=== PATIENT | female | born 1945 | race Caucasian/White ===

== ENCOUNTER 2016-10-16 09:03 | Inpatient (IN) | payer MEDICARE ==
[2016-10-16] VITALS (11 sets, daily range): BP systolic 137–192; BP diastolic 70–86; PULSE 69–90; RESP 14–22; TEMP 97.8–98.4; O2SAT 95–99
[~2016-10-16] VITALS: Ht 157.5 cm; Wt 79.9 kg
[2016-10-16 09:27] LABS: MEAN CORPUSCULAR HGB CONC 29.7 % (32.0-36.0)
--- NOTE | 2016-10-16 09:30 | PD ---
HPI Chief Complaint: Abnormal Results Time Seen by Provider: 09:20 Travel History International Travel<30 days: No Contact w/Intl Traveler<30days: No Traveled to known affect area: No History of Present Illness HPI 71-year-old female complains of generalized malaise and weakness and shortness of breath and tachycardia. Patient states that the symptoms started 5 days ago. Patient denies any headache. Patient denies any chest pain. Patient denies abdominal pain. Patient denies any blood in the stool. Patient was seen by personal physician of the days ago and had CBC done which shows hemoglobin around 5.5. Patient was advised by personal physician to ED for evaluation. Patient states that she had colonoscopy done about a year ago and was normal. Her mining helper physician Dr. Ruffin. Patient has history hypertension and hypothyroidism. Patient was given prescription for prednisone and omeprazole recently for persistent cough. Patient denies history GI bleed in the past. PFSH Past Medical History ?: Not Social History Tobacco Use: No Allergies-Medications (Allergen,Severity, Reaction): Coded Allergies: Kenalog (Verified Allergy, Severe, 10/16/16) Marcaine (Verified Allergy, Severe, 10/16/16) Sulfa (Verified Allergy, Severe, swollen hands, 10/16/16) Tetracycline (Verified Allergy, Severe, severe vaginal infection, 10/16/16) Reported Meds & Prescriptions Reported Meds & Active Scripts Active Reported Vitamin D-3 (Cholecalciferol) 2,000 Unit Tab 2,500 Units PO DAILY Perdiem Overnight Relief (Sennosides) 15 Mg Tab 30 Mg PO HS Biotin 7,500 Mcg Tab 7,500 Mcg PO DAILY [place] Oil (Nutritional Supplements) 1 Cap Cap 1,000 Mg PO DAILY Amlodipine (Amlodipine Besylate) 2.5 Mg Tab 2.5 Mg PO DAILY Synthroid (Levothyroxine Sodium) 88 Mcg Tab 88 Mcg PO DAILY Review of Systems General / Constitutional: No: Fever Eyes: No: Visual changes HENT: No: Headaches Cardiovascular: Positive: Tachycardia, No: Chest Pain or Discomfort Respiratory: Positive: Shortness of Breath Gastrointestinal: No: Abdominal Pain Genitourinary: No: Dysuria Musculoskeletal: No: Pain Skin: No Rash Neurologic: No: Weakness Psychiatric: No: Depression Endocrine: No: Polydipsia Hematologic/Lymphatic: No: Easy Bruising Physical Exam Narrative GENERAL: Well-nourished, well-developed patient. SKIN: Warm and dry. HEAD: Normocephalic. EYES: No scleral icterus. No injection or drainage. NECK: Supple, trachea midline. No JVD or lymphadenopathy. CARDIOVASCULAR: Regular rate and rhythm without murmurs, gallops, or rubs. RESPIRATORY: Breath sounds equal bilaterally. No accessory muscle use. GASTROINTESTINAL: Abdomen soft, non-tender, nondistended. Rectal exam Hemoccult trace positive. MUSCULOSKELETAL: No cyanosis, or edema. BACK: Nontender without obvious deformity. No CVA tenderness. Neurologic exam normal. Data Data Last Documented VS Vital Signs Date Time Temp Pulse Resp B/P Pulse Ox O2 Delivery O2 Flow Rate FiO2 10/16/16 10:30 97.8 83 16 184/84 98 Room Air Orders Electrocardiogram (10/16/16 09:25) Complete Blood Count With Diff (10/16/16 09:25) Comprehensive Metabolic Panel (10/16/16 09:25) Prothrombin Time / Inr (Pt) (10/16/16 09:25) Act Partial Throm Time (Ptt) (10/16/16 09:25) Thyroid Stimulating Hormone (10/16/16 09:25) Chest, Single Ap (10/16/16 09:25) Iv Access Insert/Monitor (10/16/16 09:25) Ecg Monitoring (10/16/16 09:25) Oximetry (10/16/16 09:25) Type And Screen (10/16/16 09:25) Red Blood Cells (Rbc) (10/16/16 10:02) Blood Product Administration .UPON TRANSFUSION (10/16/16 10:02) Sodium Chlor 0.9% 250 Ml Inj (Ns 250 Ml (10/16/16 10:15) Admit Order (Ed Use Only) (10/16/16 10:54) Ferritin (10/16/16 10:55) Folate, Serum (10/16/16 10:55) Iron/Tibc Profile (10/16/16 10:55) Vitamin B12 (10/16/16 10:55) Place In Observation (10/16/16 ) Diet Clear Liquid (10/16/16 Lunch) Activity Bed Rest (10/16/16 10:57) Vital Signs (Adult) TOINA.Q4H (10/16/16 10:57) Labs Laboratory Tests Test 10/16/16 09:35 White Blood Count 8.9 TH/MM3 Red Blood Count 3.13 MIL/MM3 Hemoglobin 5.8 GM/DL Hematocrit 19.7 % Mean Corpuscular Volume 63.0 FL Mean Corpuscular Hemoglobin 18.7 PG Mean Corpuscular Hemoglobin 29.7 % Concent Red Cell Distribution Width 18.6 % Platelet Count 670 TH/MM3 Mean Platelet Volume 8.3 FL Neutrophils (%) (Auto) % Lymphocytes (%) (Auto) % Monocytes (%) (Auto) % Eosinophils (%) (Auto) % Basophils (%) (Auto) % Neutrophils # (Auto) TH/MM3 Lymphocytes # (Auto) TH/MM3 Monocytes # (Auto) TH/MM3 Eosinophils # (Auto) TH/MM3 Basophils # (Auto) TH/MM3 CBC Comment AUTO DIFF Differential Total Cells 100 Counted Neutrophils % (Manual) 67 % Lymphocytes % 25 % Monocytes % 6 % Eosinophils % 2 % Neutrophils # (Manual) 6.0 TH/MM3 Nucleated Red Blood Cells 1 /100 WBC Differential Comment FINAL DIFF MANUAL Platelet Estimate HIGH Platelet Morphology Comment NORMAL Ovalocytes 1+ Acanthocytes 1+ Keratocytes 1+ Prothrombin Time 11.2 SEC Prothromb Time International 1.0 RATIO Ratio Activated Partial 20.3 SEC Thromboplast Time Sodium Level 139 MEQ/L Potassium Level 3.5 MEQ/L Chloride Level 107 MEQ/L Carbon Dioxide Level 23.8 MEQ/L Anion Gap 8 MEQ/L Blood Urea Nitrogen 16 MG/DL Creatinine 0.84 MG/DL Estimat Glomerular Filtration 67 ML/MIN Rate Random Glucose 90 MG/DL Calcium Level 8.3 MG/DL Iron Level 8 MCG/DL Total Iron Binding Capacity 540 MCG/DL Percent Iron Saturation 1.5 % Ferritin 2 NG/ML Total Bilirubin 0.2 MG/DL Aspartate Amino Transf 6 U/L (AST/SGOT) Alanine Aminotransferase 19 U/L (ALT/SGPT) Alkaline Phosphatase 74 U/L Total Protein 6.9 GM/DL Albumin 3.4 GM/DL Vitamin B12 Level 405 PG/ML Folate 7.6 NG/ML Thyroid Stimulating Hormone 0.517 uIU/ML 3rd Gen Blood Type A POSITIVE Antibody Screen NEGATIVE Blood Bank Comment Crossmatch Leukocyte-Reduced Red Blood Cells MDM Medical Decision Making Medical Screen Exam Complete: Yes Emergency Medical Condition: Yes Interpretation(s) 10:43 AM. Chest x-ray shows large hiatal hernia. No acute infiltrate. CBC with hemoglobin 5.8 hematocrit 19.7. MCV 63. CMP within normal limit. Differential Diagnosis Differential diagnosis including anemia, electrolyte imbalance, dehydration, endocrine problem, pneumonia, UTI, sepsis. Narrative Course 71-year-old female with generalized malaise and shortness of breath and tachycardia. HemaPrompt Point of Care Internal Pos. & Neg. Controls: Passed Fecal Specimen Occult Blood: Positive Diagnosis Primary Impression: Severe anemia Additional Impression: GI bleed Qualified Code: K92.2 - Gastrointestinal hemorrhage, unspecified gastrointestinal hemorrhage type Admitting Information Admitting Physician Requests: Admit Armando De La Cruz MD Oct 16, 2016 09:30
[2016-10-16] MEDS ORDERED: SYNT88TA PO (09:46)
[2016-10-16] MEDS ORDERED: CHOL1TAB42 PO (09:46)
[2016-10-16] MEDS ORDERED: iodoral PO (09:46)
[2016-10-16] MEDS ORDERED: BIOT7500 PO (09:46)
[2016-10-16] MEDS ORDERED: [UNRECOGNIZED DRUG - CODE] PO (09:46)
[2016-10-16] MEDS ORDERED: PRED10 PO (09:46)
[2016-10-16] MEDS ORDERED: AMLO2.5T PO (09:46)
[2016-10-16] MEDS ORDERED: OMEP40CA2 PO (09:46)
[2016-10-16] MEDS ORDERED: SALM10002 PO (09:46)
[2016-10-16 09:53] LABS: MEAN CORPUSCULAR HEMOGLOBIN 18.7 PG (27.0-34.0); PLATELET COUNT 670 TH/MM3 (150-450); RED BLOOD COUNT 3.13 MIL/MM3 (4.00-5.30); RED CELL DISTRIBUTION WIDTH 18.6 % (11.6-17.2); WHITE BLOOD COUNT 8.9 TH/MM3 (4.0-11.0)
[2016-10-16 09:58] LABS: HEMO FLAGS AUTO DIFF
[2016-10-16 10:02] LABS: HEMATOCRIT 19.7 % (35.0-46.0)
[2016-10-16 10:09] LABS: APTT (PATIENT) 20.3 SEC (24.3-30.1); PROTHROMBIN TIME - PATIENT 11.2 SEC (9.8-11.6)
--- NOTE | 2016-10-16 10:09 | RADRPT ---
EXAM DATE/TIME: 10/16/2016 09:23 [facility] COMPARISON: No previous studies available for comparison. INDICATIONS : Short of breath. MEDICAL HISTORY : None. SURGICAL HISTORY : None. ENCOUNTER: Initial ACUITY: 4 - 6 months PAIN SCORE: 3/10 LOCATION: Left chest FINDINGS: A single view of the chest demonstrates the lungs to be symmetrically aerated without evidence of mas s, infiltrate or effusion. Heart size is normal but there is a prominent retrocardiac density concer caron for a large hiatal hernia. Osseous structures are intact. CONCLUSION: 1. Plain film findings characteristic of a large hiatal hernia. 2. Otherwise, lungs are clear with no acute infiltrate or effusion. Fausto Herbert MD on October 16, 2016 at 10:03 Board Certified Radiologist. This report was verified electronically.
[2016-10-16 10:14] LABS: ALT (GPT) 19 U/L (10-53); ANION GAP 8 MEQ/L (5-15); AST (GOT) 6 U/L (15-37); BICARBONATE 23.8 MEQ/L (21.0-32.0); BLOOD UREA NITROGEN 16 MG/DL (7-18); CHLORIDE 107 MEQ/L (98-107); GLOMERULAR FILTRATION RATE 67 ML/MIN (>89); POTASSIUM 3.5 MEQ/L (3.5-5.1); SODIUM (NA) 139 MEQ/L (136-145)
[2016-10-16] MEDS ORDERED: SODIUM CHLOR 0.9% 250 ML INJ 250 ML IV ONE (10:15)
[2016-10-16 10:23] LABS: ALKALINE PHOSPHATASE 74 U/L (45-117); TOTAL BILIRUBIN ADULT 0.2 MG/DL (0.2-1.0)
[2016-10-16 10:40] LABS: ACANTHOCYTES 1+ (NORMAL); CORRECTED NUCLEATED RBC 1 /100 WBC (0-0); EOSINOPHILS 2 % (0-4); KERATOCYTES 1+ (NORMAL); OVALOCYTES 1+ (NORMAL); PLATELET ESTIMATE SMEAR HIGH (NORMAL); PLATELET MORPHOLOGY NORMAL (NORMAL); POLYS (SEG NEUTROPHILS) 67 % (16-70); SCAN/DIFF FINAL DIFF MANUAL; WBC DIFF SAMPLE 100
[2016-10-16 11:43] LABS: FERRITIN 2 NG/ML (8-252); TRANSFERRIN IRON PROFILE 386 MG/DL (200-360)
--- NOTE | 2016-10-16 14:27 | HHI.HP ---
[facility] Unknown Admission Diagnosis severe anemia. GI bleed. Diagnoses: Chief Complaint: Generalized weakness shortness of breath Travel History International Travel<30 Days: No Contact w/Intl Traveler <30 Da: No Traveled to Known Affected Are: No Sepsis Criteria SIRS Criteria (2 or more): Heart rate over 90, RR > 20 or PaCO2 < 32, WBC > 05963, < 4000 or > 10% bands History of Present Illness Patient is a very pleasant 71-year-old female with history of hypertension, hypothyroidism who was sent in the here from her primary care physician because of low hemoglobin. Patient apparently for the past 2 weeks now has been complaining of generalized weakness, easy fatigability associated with nausea and occasional few episodes of vomiting mostly dry heaves denies any melena or hematochezia. Patient also experiencing palpitations. Went to her primary care physician who did CBC. At the ER her hemoglobin here was 5.6. Patient also with history of obstructive sleep apnea on C Pap. She was last seen by the geriatric aide because of cough and was placed on prednisone taper and omeprazole early this month was actually placed on prednisone taper since the she's down to 10 mg daily now. Otherwise patient denies any bleeding tendencies. ER MD performed a rectal exam which shows brown stools with positive occult blood. admitted for further evaluation and management. Patient admits to having more stress lately. She denies any other bleeding tendencies. Review of Systems Constitutional: DENIES: Diaphoretic episodes, Fatigue, Fever, Weight gain, Weight loss, Chills, Dizziness, Change in appetite, Night Sweats Endocrine: DENIES: Abnorml menstrual pattern, Heat/cold intolerance, Polydipsia , Polyuria, Polyphagia Eyes: DENIES: Blurred vision, Diplopia, Eye inflammation, Eye pain, Vision loss , Photosensitivity, Double Vision Ears, nose, mouth, throat: DENIES: Tinnitus, Hearing loss, Vertigo, Nasal discharge, Oral lesions, Throat pain, Hoarseness, Ear Pain, Running Nose, Epistaxis, Sinus Pain, Toothache, Odynophagia Respiratory: COMPLAINS OF: Apneas Cardiovascular: COMPLAINS OF: Dyspnea on Exertion, DENIES: Chest pain, Palpitations, Syncope, PND, Lower Extremity Edema, Orthopnea, Claudication Gastrointestinal: COMPLAINS OF: Abdominal pain Genitourinary: DENIES: Abnormal vaginal bleeding, Dysmenorrhea, Dyspareunia, Sexual dysfunction, Urinary frequency, Urinary incontinence, Urgency, Hematuria , Dysuria, Nocturia, Vaginal discharge Musculoskeletal: DENIES: Joint pain, Muscle aches, Stiffness, Joint Swelling, Back pain, Neck pain Integumentary: DENIES: Abnormal pigmentation, Pruritus, Rash, Nail changes, Breast masses, Breast skin changes, Nipple discharge Hematologic/lymphatic: DENIES: Bruising, Lymphadenopathy Immunologic/allergic: DENIES: Eczema, Urticaria Neurologic: DENIES: Abnormal gait, Headache, Localized weakness, Paresthesias, Seizures, Speech Problems, Tremor, Poor Balance Psychiatric: DENIES: Anxiety, Confusion, Mood changes, Depression, Hallucinations, Agitation, Suicidal Ideation, Homicidal Ideation, Delusions Past Family Social History Past Medical History Hypothyroidism Hypertension Obstructive sleep apnea on C Pap Past Surgical History Hysterectomy in 1976 Meniscal left knee surgery 4 years ago Bladder bladder prolapse surgery Lasix surgery right eye Reported Medications Synthroid 88 g daily Amlodipine 2.5 mg daily Fish oil Biopsy Vitamin D3 Omeprazole 40 mg daily Patient was placed on tapering doses of prednisone now down to 30 mg daily Allergies: Coded Allergies: Kenalog (Verified Allergy, Severe, 10/16/16) Marcaine (Verified Allergy, Severe, 10/16/16) Sulfa (Verified Allergy, Severe, swollen hands, 10/16/16) Tetracycline (Verified Allergy, Severe, severe vaginal infection, 10/16/16) Physical Exam Vital Signs Vital Signs Date Time Temp Pulse Resp B/P Pulse Ox O2 Delivery O2 Flow Rate FiO2 10/16/16 14:00 81 14 178/80 95 Ventilator 10/16/16 11:05 Room Air 10/16/16 10:30 97.8 83 16 184/84 98 Room Air 10/16/16 09:08 18 10/16/16 09:05 97.8 90 20 192/82 98 Room Air Physical Exam GENERAL: This is a well-nourished, well-developed patient, in no apparent distress. SKIN: No rashes, ecchymoses or lesions. Cool and dry. HEAD: Atraumatic. Normocephalic. No temporal or scalp tenderness. EYES: Pale palpebral conjunctivae Pupils equal round and reactive. Extraocular motions intact. No scleral icterus. No injection or drainage. ENT: Nose without bleeding, purulent drainage or septal hematoma. Throat without erythema, tonsillar hypertrophy or exudate. Uvula midline. Airway patent. NECK: Trachea midline. No JVD or lymphadenopathy. Supple, nontender, no meningeal signs. CARDIOVASCULAR: Regular rate and rhythm without murmurs, gallops, or rubs. RESPIRATORY: Clear to auscultation. Breath sounds equal bilaterally. No wheezes , rales, or rhonchi. GASTROINTESTINAL: Abdomen soft, non-tender, nondistended. No hepato-splenomegaly , or palpable masses. No guarding. MUSCULOSKELETAL: Extremities without clubbing, cyanosis, or edema. No joint tenderness, effusion, or edema noted. No calf tenderness. Negative Homans sign bilaterally. NEUROLOGICAL: Awake and alert. Cranial nerves II through XII intact. Motor and sensory grossly within normal limits. Five out of 5 muscle strength in all muscle groups. Normal speech. Laboratory Laboratory Tests Test 10/16/16 10/16/16 09:35 11:48 White Blood Count 8.9 Red Blood Count 3.13 Hemoglobin 5.8 Hematocrit 19.7 Mean Corpuscular Volume 63.0 Mean Corpuscular Hemoglobin 18.7 Mean Corpuscular Hemoglobin 29.7 Concent Red Cell Distribution Width 18.6 Platelet Count 670 Mean Platelet Volume 8.3 Neutrophils (%) (Auto) Lymphocytes (%) (Auto) Monocytes (%) (Auto) Eosinophils (%) (Auto) Basophils (%) (Auto) Neutrophils # (Auto) Lymphocytes # (Auto) Monocytes # (Auto) Eosinophils # (Auto) Basophils # (Auto) CBC Comment AUTO DIFF Differential Total Cells 100 Counted Neutrophils % (Manual) 67 Lymphocytes % 25 Monocytes % 6 Eosinophils % 2 Neutrophils # (Manual) 6.0 Nucleated Red Blood Cells 1 Differential Comment FINAL DIFF MANUAL Platelet Estimate HIGH Platelet Morphology Comment NORMAL Ovalocytes 1+ Acanthocytes 1+ Keratocytes 1+ Prothrombin Time 11.2 Prothromb Time International 1.0 Ratio Activated Partial 20.3 Thromboplast Time Sodium Level 139 Potassium Level 3.5 Chloride Level 107 Carbon Dioxide Level 23.8 Anion Gap 8 Blood Urea Nitrogen 16 Creatinine 0.84 Estimat Glomerular Filtration 67 Rate Random Glucose 90 Calcium Level 8.3 Iron Level 8 Total Iron Binding Capacity 540 Percent Iron Saturation 1.5 Ferritin 2 Total Bilirubin 0.2 Aspartate Amino Transf 6 (AST/SGOT) Alanine Aminotransferase 19 (ALT/SGPT) Alkaline Phosphatase 74 Total Protein 6.9 Albumin 3.4 Vitamin B12 Level 405 Folate 7.6 Thyroid Stimulating Hormone 0.517 3rd Gen Blood Type A POSITIVE A POSITIVE Antibody Screen NEGATIVE Crossmatch Leukocyte-Reduced Red Blood Cells Blood Bank Comment Result Diagram: 10/16/1635 10/16/16934 Imaging Last Impressions Chest X-Ray 10/16/16924 Signed Impressions: Service Date/Time: Sunday, October 16, 2016 09:23 - CONCLUSION: 1. Plain film findings characteristic of a large hiatal hernia. 2. Otherwise, lungs are clear with no acute infiltrate or effusion. Fausto Herbert MD Assessment and Plan Assessment and Plan 71-year-old female presenting with Acute symptomatic severe anemia and possible GI bleed Severe iron deficiency For transfusion 2 units RBC recheck H&H in a.m. GI service consulted We'll get CT of the abdomen and pelvis Start patient on Protonix 40 mg IV Give IV Iron x 1 Hypothyroidism continue Synthroid 88 g daily History of hypertension amlodipine 2.5 mg daily Discussed with patient No chemical prophylaxis due to above Discussed Condition With Patient Vazquez Lux MD Oct 16, 2016 14:27
[2016-10-16] MEDS ORDERED: PILL SPLITTER OTHER PRN (14:45)
--- NOTE | 2016-10-16 15:45 | RADRPT ---
EXAM DATE/TIME: 10/16/2016 14:59 [facility] COMPARISON: No previous studies available for comparison. INDICATIONS : Weak nausea, low hemoglobin for five days. ORAL CONTRAST: No oral contrast ingested. RADIATION DOSE: 9.96 CTDIvol (mGy) MEDICAL HISTORY : Hypertension. Hypothyroidism. SURGICAL HISTORY : Hysterectomy. Bladder suspension ENCOUNTER: Initial ACUITY: 4 - 6 days PAIN SCALE: 0/10 LOCATION: Abdomen TECHNIQUE: Volumetric scanning of the abdomen and pelvis was performed. Using automated exposure control and adjustment of the mA and/or kV according to patient size, radiation dose was kept as low as reasonably achievable to obtain optimal diagnostic quality images. FINDINGS: Lung bases are clear. There is a large hiatal hernia evident. The liver is free of fo tatiana defects. Gallstones are present in a benign-appearing gallbladder. The pancreas and spleen are unremarkable. Right and left adrenal glands appear normal. Parapelvic cysts are seen in both kidneys. There is not an abdominal mass evident. Pelvic contents are unremarkable only for diverticula in the sigmoid colon. Bladder is unremarkable. Review of bone windows reveals scattered lucencies in the spine in a nonspecific fashion. A couple of these are probably hemangiomas. I do not see obvious bony metastatic disease to the pelvis. Scattered well-defined bone islands are e vident. CONCLUSION: 1. Negative CT scan of the abdomen and pelvis for an acute process. 2. Large hiatal hernia. 3. Gallstones. Gomez Dexter MD FACR on October 16, 2016 at 15:33 Board Certified Radiologist. This report was verified electronically.
[2016-10-16] MEDS ORDERED: IRON SUCROSE INJ 200 MG in SODIUM CHLORIDE 0.9% INJ 100 ML IV ONE (16:00)
--- NOTE | 2016-10-16 17:45 | MB ---
cc: OMKAR KAMARA MD DATE OF CONSULTATION 10/16/16 DATE OF 1945 REASON FOR CONSULTATION Anemia HISTORY OF PRESENT ILLNESS Ms. Ireland is a pleasant 71-year-old lady with past medical history significant for hypertension, hypothyroidism, obstructive sleep apnea and colonic polyps who presented to the hospital after she was found to be severely anemic by her primary care physician. The patient reports that for the past few months she has had significant weakness, fatigue and shortness of breath with minimal exertion. She also had experienced some palpitation as well. She was seen by her primary care physician who did a CBC and she was found to have a hemoglobin of 5.6. She denies any gross episode of GI bleeding. She usually has a bowel movement daily, varies in consistency but no blood noted. She did test positive for occult blood in her stool while in the emergency department. She is well-known to our GI service. She had a recent colonoscopy in May 2016 which was only significant for small rectal polyps which were hyperplastic on pathology. She has never had an upper endoscopy. She does report use of NSAIDs at times for back pain as well as aspirin. She also reports using steroids recently given by her tax advisor for an episode of cough. She does have a family history of colonic polyps in her father. She reports drinking wine occasionally but not a heavy drinker. GI being consulted for evaluation of anemia and possible GI bleeding. PAST MEDICAL HISTORY 1. Hypothyroidism. 2. Hypertension 3. Obstructive sleep apnea uses a CPAP. 4. History of colonic polyps. PAST SURGICAL HISTORY 1. Hysterectomy 1977 2. left knee surgery. 3. Polyp surgery 4. Eye surgery to the right eye. MEDICATIONS 1. Synthroid 88 mcg daily 2. Amlodipine 2.5 mg daily 3. Fish oil 4. Vitamin D3, 5. Omeprazole 40 grams daily 6. Taper dose of prednisone. ALLERGIES KENALOG MARCAINE SULFA TETRACYCLINE SOCIAL HISTORY Reports drinking wine occasionally, no ___ or drug use. FAMILY HISTORY History of colonic polyps in his father. REVIEW OF SYSTEMS Significant for fatigue, weakness, short of breath, palpitations, nausea and vomiting. Otherwise 14 point medical review of systems negative. PHYSICAL EXAMINATION VITAL SIGNS: Temperature 98.4, pulse of 78, respiratory 216, blood pressure 161/79, satting 96% on room air. GENERAL: She is a well-developed lady in no acute distress lying comfortably in bed. HEENT: Normocephalic, atraumatic. Extraocular movements are intact. Pupils equal, round, reactive to light and accommodation. Nonicteric sclera. Moist mucosa. NECK: Supple, no jugular venous distention. No lymphadenopathy. CARDIOVASCULAR: Regular rate and rate, S1, S2, no murmurs or gallops. PULMONARY: Clear to auscultation bilaterally. No wheezing or rhonchi. ABDOMEN: Soft, nontender, nondistended. Bowel sounds are present in all four quadrants. EXTREMITIES: No cyanosis or edema. Pulses 2+ bilaterally. NEUROLOGIC: She is alert, oriented x3, cranial nerves intact, no focal deficits. SKIN: She has general pallor otherwise no lesions. LABORATORY DATA White blood cell count is 8.9, hemoglobin of 5.8, hematocrit 19.7, platelet count 670. Sodium is 139, potassium 2.5, chloride 107, bicarb 22.8, BUN 16, creatinine 0.84, iron level of 8, ferritin of 2. Iron saturation of 1.5, AST is six, ALT of 19, alkaline phosphatase 74, total protein is 6.9. INR 1. IMAGING STUDIES CT abdomen and pelvis done on October 16, 2016 showed large hiatal hernia and evidence of gallstones, also showed areas of diverticula in the sigmoid colon without areas of diverticulitis. ASSESSMENT/PLAN Ms. Ireland is a pleasant 71-year-old lady with history of hypothyroidism, hypertension, obstructive sleep apnea and colonic polyps presenting with severe symptomatic anemia. No gross GI bleeding reported, however, tested positive for occult blood. He had a recent colonoscopy in May 2016 which was only significant for small hyperplastic rectal polyps. She does take NSAIDs regularly and has been on a tapered course of steroids. PLAN 1. Anemia/GI bleeding. Based on presentation and symptoms, we are concerned about an upper GI source of bleeding. We recommend to monitor her H&H every 8 hours and transfuse as needed to maintain a hemoglobin about seven. Continue Protonix IV 40 mg q.12 h. We will plan to perform an upper endoscopy tomorrow for evaluation of GI bleeding. The patient can have a full liquid diet tonight and we will place her n.p.o. after midnight. Recommend to avoid any NSAIDs use. If upper endoscopy negative we may consider repeating a colonoscopy versus going forward with a capsule endoscopy as an outpatient. All other medical problems to be addressed by primary team. We would like to thank Dr. Lux for this consultation and letting us participate in the care of Mr. Ireland. We will follow the patient along with you. Please call us with any question or concerns. MD ARON Mcdaniels/ /4:57 PM /5:20 PM MTDD
[2016-10-16] MEDS: PANTOPRAZOLE SODIUM 40 MG VIAL IV PUSH SCH (17:46)
[2016-10-16] MEDS: DEXTROSE 5%-LACTATED RING INJ 1,000 ML IV SCH ×2 (17:47→20:25)
--- NOTE | 2016-10-16 19:35 | EKG ---
Date Performed: 10/16/2016 Time Performed: 09:58:47 PTAGE: 71 years EKG: Sinus rhythm WITH SINUS ARRHYTHMIA NORMAL ECG NO PREVIOUS TRACING DOCTOR: Princess Bryan Interpretating Date/Time 10/16/2016 19:34:08
[2016-10-17] VITALS (10 sets, daily range): BP systolic 131–163; BP diastolic 66–100; PULSE 69–82; RESP 16–20; TEMP 98.5–99.1; O2SAT 94–97
[2016-10-17] MEDS: PANTOPRAZOLE SODIUM 40 MG VIAL IV PUSH SCH (03:18)
[2016-10-17] MEDS: LEVOTHYROXINE SODIUM 88 MCG TAB PO SCH (05:27)
[2016-10-17 06:52] LABS: AUTOMATED NEUTROPHIL # 3.2 TH/MM3 (1.8-7.7); BASOPHIL % 0.6 % (0.0-2.0); EOSINOPHIL # 0.2 TH/MM3 (0-0.4); EOSINOPHIL % 2.6 % (0.0-4.0); LYMPH % 28.2 % (9.0-44.0); LYMPHOCYTE # 1.7 TH/MM3 (1.0-4.8); MEAN CELL VOLUME 68.4 FL (80.0-100.0); MEAN CORPUSCULAR HEMOGLOBIN 21.8 PG (27.0-34.0); MEAN CORPUSCULAR HGB CONC 31.8 % (32.0-36.0); MONO % 17.1 % (0.0-8.0); NEUT % 51.5 % (16.0-70.0); PLATELET COUNT 548 TH/MM3 (150-450); RED BLOOD COUNT 3.95 MIL/MM3 (4.00-5.30); RED CELL DISTRIBUTION WIDTH 24.9 % (11.6-17.2); WHITE BLOOD COUNT 6.2 TH/MM3 (4.0-11.0)
[2016-10-17 06:56] LABS: HEMO FLAGS AUTO DIFF
[2016-10-17] MEDS ORDERED: ACETAMINOPHEN 325 MG TAB PO ONE ×2 (08:45→23:00)
[2016-10-17 08:47] LABS: SCAN/DIFF AUTO DIFF CONFIRMED
--- NOTE | 2016-10-17 08:52 | HHI.PR ---
Subjective Remarks awake and alert, denies any abdominal , melena or hematochezia feels stronger having some frontal headache- no N/V/weakness Objective Vitals Vital Signs Date Time Temp Pulse Resp B/P Pulse Ox O2 Delivery O2 Flow Rate FiO2 10/17/16 04:30 154/84 10/17/16 04:00 98.7 74 18 162/90 95 10/17/16 04:00 Room Air 10/17/16 03:22 82 10/17/16 02:55 99.1 70 18 142/88 97 10/17/16 02:55 Room Air 10/17/16 02:53 156/100 10/17/16 00:00 69 16 163/86 96 Room Air 10/16/16 22:30 69 18 163/86 96 Room Air 10/16/16 20:28 78 18 147/70 96 Room Air 10/16/16 19:23 81 16 137/71 95 Room Air 10/16/16 17:00 75 22 170/77 99 Room Air 10/16/16 16:00 78 16 161/79 96 Room Air 10/16/16 15:10 80 16 98 10/16/16 14:55 98.4 80 16 168/78 99 Room Air 10/16/16 14:00 81 14 178/80 95 Ventilator 10/16/16 11:05 Room Air 10/16/16 10:30 97.8 83 16 184/84 98 Room Air 10/16/16 09:08 18 10/16/16 09:05 97.8 90 20 192/82 98 Room Air I/O 10/16/16 10/16/16 10/16/16 10/17/16 10/17/16 10/17/16 07:00 15:00 23:00 07:00 15:00 23:00 Intake Total 250 ml Balance 250 ml Intake Packed Cells 250 ml # Voids 1 2 # Bowel Movements 0 Result Diagram: 10/17/16 0610 10/16/1635 Imaging Last Impressions Chest X-Ray 10/16/16924 Signed Impressions: Service Date/Time: Sunday, October 16, 2016 09:23 - CONCLUSION: 1. Plain film findings characteristic of a large hiatal hernia. 2. Otherwise, lungs are clear with no acute infiltrate or effusion. Fausto Herbert MD Abdomen/Pelvis CT 10/16/16 0000 Signed Impressions: Service Date/Time: Sunday, October 16, 2016 14:59 - CONCLUSION: 1. Negative CT scan of the abdomen and pelvis for an acute process. 2. Large hiatal hernia. 3. Gallstones. Gomez Dexter MD FACR Objective Remarks GENERAL: awake and alert, oriented x 3 SKIN: Warm and dry. HEAD: Normocephalic.no tempral tenderness, pupils equal EYES: No scleral icterus. No injection or drainage. NECK: Supple, trachea midline. No JVD or lymphadenopathy. CARDIOVASCULAR: Regular rate and rhythm without murmurs, gallops, or rubs. RESPIRATORY: Breath sounds equal bilaterally. No accessory muscle use. GASTROINTESTINAL: Abdomen soft, non-tender, nondistended. good bowel sounds MUSCULOSKELETAL: No cyanosis, or edema. BACK: Nontender without obvious deformity. No CVA tenderness. neuro exam- grossly unremarkable A/P Assessment and Plan 71-year-old female presenting with Acute symptomatic severe anemia and possible GI bleed S/P BT -2 units- Hgb up to 8.[address] of abdomen- unremarkable except for hiatal hernia S/P 200 mg IV sucrose x 1. will dc on po Iron sulfate on DC Protonix 40 mg IV for EGD today Hypothyroidism continue Synthroid 88 g daily History of hypertension amlodipine 2.5 mg daily Headache- tylenol 650 mg po x 1 Discussed with patient No chemical prophylaxis due to above Vazquez Lux MD Oct 17, 2016 08:52
[2016-10-17] MEDS ORDERED: BIOTIN 7500 MCG PO SCH (09:00)
[2016-10-17] MEDS: amLODIPine BESYLATE 5 MG TAB PO SCH (09:01)
[2016-10-17] MEDS: CHOLECALCIFEROL (VIT D3) 1000 UNIT TAB PO SCH (09:01)
--- NOTE | 2016-10-17 14:35 | HHI.GIFU ---
Subjective Remarks Feels better after blood transfusion. No Bm's, no abdominal pain. NPO for procedure today. Objective Vitals I&O Vital Signs Date Time Temp Pulse Resp B/P Pulse Ox O2 Delivery O2 Flow Rate FiO2 10/17/16 08:00 80 10/17/16 08:00 98.5 16 131/74 97 10/17/16 08:00 Room Air 10/17/16 04:30 154/84 10/17/16 04:00 98.7 74 18 162/90 95 10/17/16 04:00 Room Air 10/17/16 03:22 82 10/17/16 02:55 99.1 70 18 142/88 97 10/17/16 02:55 Room Air 10/17/16 02:53 156/100 10/17/16 00:00 69 16 163/86 96 Room Air 10/16/16 22:30 69 18 163/86 96 Room Air 10/16/16 20:28 78 18 147/70 96 Room Air 10/16/16 19:23 81 16 137/71 95 Room Air 10/16/16 17:00 75 22 170/77 99 Room Air 10/16/16 16:00 78 16 161/79 96 Room Air 10/16/16 15:10 80 16 98 10/16/16 14:55 98.4 80 16 168/78 99 Room Air I/O 10/16/16 10/16/16 10/16/16 10/17/16 10/17/16 10/17/16 07:00 15:00 23:00 07:00 15:00 23:00 Intake Total 250 ml Output Total 700 ml Balance 250 ml -700 ml Intake Packed Cells 250 ml Output Urine Total 700 ml # Voids 1 2 # Bowel Movements 0 Laboratory Laboratory Tests Test 10/17/16 06:10 White Blood Count 6.2 Red Blood Count 3.95 Hemoglobin 8.6 Hematocrit 27.0 Mean Corpuscular Volume 68.4 Mean Corpuscular Hemoglobin 21.8 Mean Corpuscular Hemoglobin 31.8 Concent Red Cell Distribution Width 24.9 Platelet Count 548 Mean Platelet Volume 8.3 Neutrophils (%) (Auto) 51.5 Lymphocytes (%) (Auto) 28.2 Monocytes (%) (Auto) 17.1 Eosinophils (%) (Auto) 2.6 Basophils (%) (Auto) 0.6 Neutrophils # (Auto) 3.2 Lymphocytes # (Auto) 1.7 Monocytes # (Auto) 1.1 Eosinophils # (Auto) 0.2 Basophils # (Auto) 0.0 CBC Comment AUTO DIFF Differential Comment AUTO DIFF CONFIRMED Physical Exam HEENT: Pupils round and reactive to light; normocephalic; atraumatic; no jaundice. Throat is clear. ABDOMEN: Soft, nondistended, nontender; no hepatosplenomegaly; bowel sounds are present in all four quadrants. EXTREMITIES: No clubbing, cyanosis, or edema. SKIN: Normal; no rash; no jaundice. [place]: No focal deficits; alert and oriented times three. Assessment and Plan Assessment: (1) GI bleed (2) Severe anemia Plan 1. Anemia/positive fecal occult blood - concerns for possible upper source of bleeding, hx of NSAID use and steroids - continue supportive care - monitor H&H daily and transfuse as needed to keep hb>7 - continue protonix 40mg IV BID - plan for EGD with SB biopsies today - if negative may need capsule endoscopy as outpatient 2. All other medical problems to be addressed by primary team Problem Qualifiers (1) GI bleed: Qualified Code: K92.2 - Gastrointestinal hemorrhage, unspecified gastrointestinal hemorrhage type Hamzah Stern MD Oct 17, 2016 14:35
[2016-10-17] MEDS ORDERED: PROPOFOL 200 MG/20 ML AMP IV ONE (14:42)
--- NOTE | 2016-10-17 15:10 | PD.PROCEDR ---
GI Procedure PROCEDURE DATE: Oct 17, 2016 INDICATION FOR PROCEDURE Anemia, FOBT positive PROCEDURE: The procedure, risks and benefits were discussed with Ms. Ireland and informed consent was obtained. Anesthesia sedated her with Diprivan. She was placed in the left lateral decubitus position. EGD: The Pentax videoscope was introduced through the oropharynx and advanced to the second portion of the duodenum under direct visualization. Retroflexion was performed in the stomach. FINDINGS: - possible esophageal candidiasis in mid-esophagus. Biopsied - large hiatal hernia - mild gastric erythema and erosions in stomach body. Random gastric biopsies taken. - normal duodenal mucosa. Biopsied. ESTIMATED BLOOD LOSS: - minimal COMPLICATIONS: - none IMPRESSION: - possible esophageal candidiasis - mild erosive gastritis - large hiatal hernia PLAN: - return to floor - resume diet - PPI 40mg PO daily - await path results - UGI series - may need capsule endoscopy as outpatient Hamzah Stern MD Oct 17, 2016 15:10
--- NOTE | 2016-10-17 16:24 | RADRPT ---
EXAM DATE/TIME: 10/17/2016 15:29 [place] COMPARISON: No previous studies available for comparison. INDICATIONS : Hiatal hernia, anemia. FLUORO TIME: 1.3 minutes IMAGE COUNT: CONTRAST: 1. Liquid E-Z Paque Barium Sulfate (60% w/v, 41% w.w) 2. E-Z Gas II Effervescent granules (Antacid 0.14 oz) 3. E-Z HD Barium Sulfate (98% w/w) MEDICAL HISTORY : None. SURGICAL HISTORY : Hysterectomy. ENCOUNTER: Initial ACUITY: 2 days PAIN SCORE: 0/10 LOCATION: Left abdomen. FINDINGS: Examination of the swallowing function demonstrates no evidence of aspiration or penetration. The carmen dy of the esophagus is unremarkable. There is a moderate to large partially reducible hiatal hernia. Examination of the stomach demonstrates no evidence of intraluminal mass or extrinsic compression. T he gastric volume appears normal and there are no findings of ulceration. The mucosal pattern appear s normal. The duodenal bulb and sweep are unremarkable except for a small duodenal diverticulum. The visualized small bowel is unremarkable. CONCLUSION: Moderate to large hiatal hernia. Lc Encinas MD on October 17, 2016 at 16:21 Board Certified Radiologist. This report was verified electronically.
[2016-10-17] MEDS: FERROUS SULFATE 325 MG (65 MG ELEMENTAL IRON) TAB PO SCH (20:29)
[2016-10-18] VITALS: BP 137/68; PULSE 71; RESP 18; TEMP 98.6; O2SAT 95
[2016-10-18] MEDS: LEVOTHYROXINE SODIUM 88 MCG TAB PO SCH (05:30)
[2016-10-18 08:00] VITALS: BP 149/72; PULSE 69; RESP 17; TEMP 97.5; O2SAT 95
[2016-10-18] MEDS: amLODIPine BESYLATE 5 MG TAB PO SCH (10:13)
[2016-10-18] MEDS: CHOLECALCIFEROL (VIT D3) 1000 UNIT TAB PO SCH (10:13)
[2016-10-18] MEDS: PANTOPRAZOLE SOD 40 MG DELAYED RELEASE TAB PO SCH (10:13)
[2016-10-18] MEDS: FERROUS SULFATE 325 MG (65 MG ELEMENTAL IRON) TAB PO SCH ×2 (10:13→21:11)
--- NOTE | 2016-10-18 11:10 | HHI.PR ---
Subjective Remarks feels slight nausea constipation no abdominal pain complains of palpitations Objective Vitals Vital Signs Date Time Temp Pulse Resp B/P Pulse Ox O2 Delivery O2 Flow Rate FiO2 10/18/16 08:00 97.5 69 17 149/72 95 10/18/16 00:00 98.6 71 18 137/68 95 10/17/16 20:32 98.6 73 20 140/66 96 10/17/16 16:00 98.6 72 16 153/81 94 10/17/16 15:15 77 16 143/71 98 10/17/16 15:07 79 16 137/69 95 10/17/16 15:01 97.9 76 16 131/67 94 10/17/16 14:29 98.6 72 16 153/81 94 I/O 10/17/16 10/17/16 10/17/16 10/18/16 10/18/16 10/18/16 07:00 15:00 23:00 07:00 15:00 23:00 Intake Total 240 ml 440 ml 240 ml Output Total 700 ml 700 ml Balance -460 ml 440 ml -460 ml Intake Oral 240 ml 240 ml 240 ml IV Total 0 ml Other 200 ml Output Urine Total 700 ml 700 ml # Voids 2 2 2 # Bowel Movements 0 0 0 Result Diagram: 10/18/16 0702 10/16/16 0935 Imaging Last Impressions Upper GI Series 10/17/16 0000 Signed Impressions: Service Date/Time: September 15:29 - CONCLUSION: Moderate to large hiatal hernia. Lc Encinas MD Chest X-Ray 10/16/16 0925 Signed Impressions: Service Date/Time: Sunday, October 16, 2016 09:23 - CONCLUSION: 1. Plain film findings characteristic of a large hiatal hernia. 2. Otherwise, lungs are clear with no acute infiltrate or effusion. Fausto Herbert MD Abdomen/Pelvis CT 10/16/16 0000 Signed Impressions: Service Date/Time: Sunday, October 16, 2016 14:59 - CONCLUSION: 1. Negative CT scan of the abdomen and pelvis for an acute process. 2. Large hiatal hernia. 3. Gallstones. Gomez Dexter MD FACR Objective Remarks GENERAL: awake and alert, oriented x 3 SKIN: Warm and dry. CARDIOVASCULAR: Regular rate and rhythm without murmurs, gallops, or rubs. RESPIRATORY: Breath sounds equal bilaterally. No accessory muscle use. GASTROINTESTINAL: Abdomen soft, non-tender, nondistended. good bowel sounds MUSCULOSKELETAL: No cyanosis, or edema. BACK: Nontender without obvious deformity. No CVA tenderness. neuro exam- grossly unremarkable Procedures 10/17- EGD- esophagial candidasis, erosive gastritis, large hiatal hernia A/P Assessment and Plan 71-year-old female presenting with Symptomatic severe anemia due to erosive gastritis- S/P EGD 10/[address] of abdomen- unremarkable except for hiatal hernia po Iron sulfate bid Protonix po 40 mg daily capsule endoscopy as OP colace for constipation (on Iron) reheck CBC in am D/W GI- he will consult GS for evaluation of large hiatal hernia Hypothyroidism continue Synthroid 88 g daily History of hypertension amlodipine 2.5 mg daily Palpitations- likely due to anemia, chronic ? anginal equivalent ? due to large hiatal hernia ? demand ischemia. get troponin- if negative consider Lexiscan states she was set up to see a plateman for evaluation- consult in house get Echo , holter, place on telemetry Discussed with patient No chemical prophylaxis due to above Vazquez Lux MD Oct 18, 2016 11:10
--- NOTE | 2016-10-18 11:48 | HHI.GIFU ---
Subjective Remarks Pt reports some nausea and palpitations with meals. No BM's reported. No GI bleeding noted. Objective Vitals I&O Vital Signs Date Time Temp Pulse Resp B/P Pulse Ox O2 Delivery O2 Flow Rate FiO2 10/18/16 08:00 97.5 69 17 149/72 95 10/18/16 00:00 98.6 71 18 137/68 95 10/17/16 20:32 98.6 73 20 140/66 96 10/17/16 16:00 98.6 72 16 153/81 94 10/17/16 15:15 77 16 143/71 98 10/17/16 15:07 79 16 137/69 95 10/17/16 15:01 97.9 76 16 131/67 94 10/17/16 14:29 98.6 72 16 153/81 94 I/O 10/17/16 10/17/16 10/17/16 10/18/16 10/18/16 10/18/16 07:00 15:00 23:00 07:00 15:00 23:00 Intake Total 240 ml 440 ml 240 ml Output Total 700 ml 700 ml Balance -460 ml 440 ml -460 ml Intake Oral 240 ml 240 ml 240 ml IV Total 0 ml Other 200 ml Output Urine Total 700 ml 700 ml # Voids 2 2 2 # Bowel Movements 0 0 0 Laboratory Laboratory Tests Test 10/18/16 07:02 Hemoglobin 9.4 Hematocrit 30.0 Physical Exam HEENT: Pupils round and reactive to light; normocephalic; atraumatic; no jaundice. Throat is clear. ABDOMEN: Soft, nondistended, nontender; no hepatosplenomegaly; bowel sounds are present in all four quadrants. EXTREMITIES: No clubbing, cyanosis, or edema. SKIN: Normal; no rash; no jaundice. HAND TIER: No focal deficits; alert and oriented times three. Assessment and Plan Assessment: (1) GI bleed (2) Severe anemia Plan 1. Anemia/positive fecal occult blood - EGD showed evidence of possible esophageal candidiasis, large hiatal hernia with gastric erosions. Normal duodenum biopsied. - UGIS showing moderate to large size hiatal hernia - Hemoglobin stable after transfusions. Continue to monitor H&H daily and transfuse as needed to keep hb>7 - recommend protonix 40mg PO daily - follow path report - may need capsule endoscopy as outpatient - Surgery consult for possible elective hernia repair - follow with GI as outpatient in 2-4 weeks 2. All other medical problems to be addressed by primary team GI will sign off at this time. Please call with any questions or concerns. Thank you for this consult. Problem Qualifiers (1) GI bleed: Qualified Code: K92.2 - Gastrointestinal hemorrhage, unspecified gastrointestinal hemorrhage type Hamzah Stern MD Oct 18, 2016 11:48
[2016-10-18 12:00] VITALS: BP 143/77; PULSE 86; RESP 17; TEMP 97.2; O2SAT 97
[2016-10-18] MEDS: METOCLOPRAMIDE HCL 10 MG TAB PO SCH ×2 (12:38→17:12)
[2016-10-18] MEDS: DOCUSATE SODIUM 100 MG CAP PO SCH ×2 (12:38→17:12)
[2016-10-18 13:00] LABS: ANION GAP 7 MEQ/L (5-15); BICARBONATE 26.1 MEQ/L (21.0-32.0); BLOOD UREA NITROGEN 15 MG/DL (7-18); CHLORIDE 106 MEQ/L (98-107); GLOMERULAR FILTRATION RATE 72 ML/MIN (>89); POTASSIUM 3.9 MEQ/L (3.5-5.1); SODIUM (NA) 139 MEQ/L (136-145)
[2016-10-18 16:00] VITALS: BP 142/73; PULSE 88; RESP 17; TEMP 97.6; O2SAT 97
[2016-10-18 19:48] VITALS: PULSE 80
[2016-10-18 20:00] VITALS: BP 121/61; PULSE 88; RESP 16; TEMP 97.8; O2SAT 96
[2016-10-19] VITALS (7 sets, daily range): BP systolic 115–140; BP diastolic 61–74; PULSE 69–87; RESP 14–18; TEMP 96.8–98.1; O2SAT 96–97
[2016-10-19] MEDS: LEVOTHYROXINE SODIUM 88 MCG TAB PO SCH (04:45)
--- NOTE | 2016-10-19 09:46 | HHI.PR ---
Subjective Remarks slight nausea after eating episodes of palpitations overnight telemetry reviewed- HR occasionally in the 150s- transient , ? frequent PACs, interm a fib Objective Vitals Vital Signs Date Time Temp Pulse Resp B/P Pulse Ox O2 Delivery O2 Flow Rate FiO2 10/19/16 08:00 97.7 71 17 131/74 96 10/19/16 04:00 97.5 69 18 115/68 97 10/19/16 00:00 98.1 79 16 116/63 96 10/18/16 20:00 97.8 88 16 121/61 96 10/18/16 19:48 80 10/18/16 19:12 Room Air 10/18/16 16:00 97.6 88 17 142/73 97 10/18/16 12:00 97.2 86 17 143/77 97 I/O 10/18/16 10/18/16 10/18/16 10/19/16 10/19/16 10/19/16 07:00 15:00 23:00 07:00 15:00 23:00 Intake Total 240 ml 0 ml 120 ml 240 ml Output Total 700 ml 200 ml 500 ml Balance -460 ml 0 ml -80 ml -260 ml Intake Oral 240 ml 120 ml 240 ml IV Total 0 ml 0 ml Output Urine Total 700 ml 200 ml 500 ml # Bowel Movements 0 0 0 Result Diagram: 10/18/16 0702 10/18/16 1155 Imaging Last Impressions Upper GI Series 10/17/16 0000 Signed Impressions: Service Date/Time: September 15:29 - CONCLUSION: Moderate to large hiatal hernia. Lc Encnias MD Chest X-Ray 10/16/16 0925 Signed Impressions: Service Date/Time: Sunday, October 16, 2016 09:23 - CONCLUSION: 1. Plain film findings characteristic of a large hiatal hernia. 2. Otherwise, lungs are clear with no acute infiltrate or effusion. Fausto Herbert MD Abdomen/Pelvis CT 10/16/16 0000 Signed Impressions: Service Date/Time: Sunday, October 16, 2016 14:59 - CONCLUSION: 1. Negative CT scan of the abdomen and pelvis for an acute process. 2. Large hiatal hernia. 3. Gallstones. Gomez Dexter MD FACR Objective Remarks GENERAL: awake and alert, oriented x 3 SKIN: Warm and dry. CARDIOVASCULAR: Regular rate and rhythm without murmurs, gallops, or rubs. RESPIRATORY: Breath sounds equal bilaterally. No accessory muscle use. GASTROINTESTINAL: Abdomen soft, non-tender, nondistended. good bowel sounds MUSCULOSKELETAL: No cyanosis, or edema. BACK: Nontender without obvious deformity. No CVA tenderness. neuro exam- grossly unremarkable Procedures 10/17- EGD- esophagial candidasis, erosive gastritis, large hiatal hernia A/P Assessment and Plan 71-year-old female presenting with Symptomatic severe anemia due to erosive gastritis- S/P EGD 10/[address] of abdomen- unremarkable except for large hiatal hernia po Iron sulfate bid Protonix po 40 mg daily capsule endoscopy as OP colace for constipation (on Iron) reheck CBn GS consulted for evaluation of large hiatal hernia Hypothyroidism continue Synthroid 88 g daily History of hypertension amlodipine 2.5 mg daily Palpitations- likely due to anemia, chronic ? anginal equivalent telemetry- freq PACs vs ? intermittent a fib states she was set up to see a block greaser - Mario for evaluation- consulted in house get Echo , holter in progress Discussed with patient No chemical prophylaxis due to above Vazquez Lux MD Oct 19, 2016 09:46 Vazquez Lux MD Oct 19, 2016 09:46
[2016-10-19] MEDS: DOCUSATE SODIUM 100 MG CAP PO SCH ×3 (09:51→18:00)
[2016-10-19] MEDS: PANTOPRAZOLE SOD 40 MG DELAYED RELEASE TAB PO SCH (09:51)
[2016-10-19] MEDS: amLODIPine BESYLATE 5 MG TAB PO SCH (09:52)
[2016-10-19] MEDS: FERROUS SULFATE 325 MG (65 MG ELEMENTAL IRON) TAB PO SCH ×2 (09:52→21:22)
[2016-10-19] MEDS: CHOLECALCIFEROL (VIT D3) 1000 UNIT TAB PO SCH (09:53)
[2016-10-19] MEDS: METOCLOPRAMIDE HCL 10 MG TAB PO SCH ×3 (09:54→18:00)
[2016-10-19 11:07] LABS: HEMATOCRIT 30.6 % (35.0-46.0); MEAN CELL VOLUME 70.8 FL (80.0-100.0); MEAN CORPUSCULAR HGB CONC 31.1 % (32.0-36.0); PLATELET COUNT 546 TH/MM3 (150-450); RED BLOOD COUNT 4.32 MIL/MM3 (4.00-5.30); RED CELL DISTRIBUTION WIDTH 26.8 % (11.6-17.2); WHITE BLOOD COUNT 8.6 TH/MM3 (4.0-11.0)
[2016-10-19 11:09] LABS: HEMO FLAGS AUTO DIFF
[2016-10-19 11:17] LABS: BICARBONATE 23.5 MEQ/L (21.0-32.0)
[2016-10-19 11:23] LABS: POTASSIUM 5.2 MEQ/L (3.5-5.1)
[2016-10-19 12:14] LABS: EOSINOPHILS 2 % (0-4); PLATELET ESTIMATE SMEAR HIGH (NORMAL); POLYCHROMASIA 2.6 % (0.0-1.9); POLYS (SEG NEUTROPHILS) 58 % (16-70); WBC DIFF SAMPLE 100
[2016-10-19 12:15] LABS: PLATELET MORPHOLOGY ENLARGED (NORMAL); SCAN/DIFF FINAL DIFF MANUAL
[2016-10-20] VITALS: BP 132/71; PULSE 73; RESP 16; TEMP 97; O2SAT 98
[2016-10-20] MEDS: LEVOTHYROXINE SODIUM 88 MCG TAB PO SCH (04:55)
[2016-10-20 08:00] VITALS: BP 139/75; PULSE 81; RESP 20; TEMP 95.5; O2SAT 96
[2016-10-20] MEDS: METOCLOPRAMIDE HCL 10 MG TAB PO SCH ×3 (08:33→17:00)
[2016-10-20] MEDS: PANTOPRAZOLE SOD 40 MG DELAYED RELEASE TAB PO SCH (08:34)
[2016-10-20] MEDS: DOCUSATE SODIUM 100 MG CAP PO SCH ×3 (08:34→18:00)
[2016-10-20] MEDS: CHOLECALCIFEROL (VIT D3) 1000 UNIT TAB PO SCH (08:34)
[2016-10-20] MEDS: FERROUS SULFATE 325 MG (65 MG ELEMENTAL IRON) TAB PO SCH ×2 (08:34→20:28)
[2016-10-20] MEDS: amLODIPine BESYLATE 5 MG TAB PO SCH (08:35)
--- NOTE | 2016-10-20 08:37 | HHI.PR ---
Subjective Remarks no nausea or vomiting, no abdominal pain + flatus, no BM yet no reflux symptoms telemetry reviewed- sinus arrhythmia Objective Vitals Vital Signs Date Time Temp Pulse Resp B/P Pulse Ox O2 Delivery O2 Flow Rate FiO2 10/20/16 00:00 97.0 73 16 132/71 98 10/19/16 20:00 96.8 87 14 129/61 97 10/19/16 19:40 Room Air 10/19/16 16:00 97.8 74 17 130/73 96 10/19/16 15:29 75 10/19/16 12:00 97.7 80 17 140/67 96 I/O 10/19/16 10/19/16 10/19/16 10/20/16 10/20/16 10/20/16 07:00 15:00 23:00 07:00 15:00 23:00 Intake Total 240 ml 340 ml 360 ml 120 ml Output Total 500 ml 700 ml 700 ml 450 ml Balance -260 ml -360 ml -340 ml -330 ml Intake Oral 240 ml 340 ml 360 ml 120 ml Output Urine Total 500 ml 700 ml 700 ml 450 ml # Bowel Movements 0 0 0 0 Result Diagram: 10/19/16 1030 10/19/16 1030 Imaging Last Impressions Upper GI Series 10/17/16 0000 Signed Impressions: Service Date/Time: September 15:29 - CONCLUSION: Moderate to large hiatal hernia. Lc Encinas MD Chest X-Ray 10/16/16 0925 Signed Impressions: Service Date/Time: Sunday, October 16, 2016 09:23 - CONCLUSION: 1. Plain film findings characteristic of a large hiatal hernia. 2. Otherwise, lungs are clear with no acute infiltrate or effusion. Fausto Herbert MD Abdomen/Pelvis CT 10/16/16 0000 Signed Impressions: Service Date/Time: Sunday, October 16, 2016 14:59 - CONCLUSION: 1. Negative CT scan of the abdomen and pelvis for an acute process. 2. Large hiatal hernia. 3. Gallstones. Gomez Dexter MD FACR Objective Remarks GENERAL: awake and alert, oriented x 3 SKIN: Warm and dry. CARDIOVASCULAR: Regular rate and rhythm without murmurs, gallops, or rubs. RESPIRATORY: Breath sounds equal bilaterally. No accessory muscle use. GASTROINTESTINAL: Abdomen soft, non-tender, nondistended. good bowel sounds MUSCULOSKELETAL: No cyanosis, or edema. BACK: Nontender without obvious deformity. No CVA tenderness. neuro exam- grossly unremarkable Procedures 10/17- EGD- esophagial candidasis, erosive gastritis, large hiatal hernia A/P Assessment and Plan 71-year-old female presenting with Symptomatic severe anemia due to erosive gastritis- S/P EGD 10/17 Severe iron deficiency Large hiatal hernia CT of abdomen- unremarkable except for large hiatal hernia po Iron sulfate bid Protonix po 40 mg daily capsule endoscopy as OP colace give x 1 Miralax we will consult GS in am for eval of large hiatal hernia- GI recom Hypothyroidism continue Synthroid 88 g daily History of hypertension amlodipine 2.5 mg daily Palpitations- likely due to anemia, chronic ? anginal equivalent telemetry- now in sinus arrhythmia Dr. Martin for evaluation- consulted get Echo , holter - completed last evening Microscopic Hematuria-currently on her cycle Discussed with patient plan No chemical prophylaxis due to above up and ambulating Vazquez Lux MD Oct 20, 2016 08:37 Vazquez Lux MD Oct 20, 2016 08:37
[2016-10-20] MEDS ORDERED: POLYETHYLENE GLYCOL 17 GM PKG PO ONE (08:45)
[2016-10-20 12:00] VITALS: BP 137/71; PULSE 78; RESP 20; TEMP 95.3; O2SAT 97
[2016-10-20 12:07] LABS: BICARBONATE 23.6 MEQ/L (21.0-32.0); POTASSIUM 3.7 MEQ/L (3.5-5.1)
[2016-10-20 12:30] LABS: HEMATOCRIT 31.3 % (35.0-46.0)
[2016-10-20 16:00] VITALS: BP 133/72; PULSE 89; RESP 20; TEMP 98.2; O2SAT 95
[2016-10-20 20:00] VITALS: BP 148/94; PULSE 93; RESP 20; TEMP 98.1; O2SAT 97
[2016-10-21] MEDS: LEVOTHYROXINE SODIUM 88 MCG TAB PO SCH (06:11)
[2016-10-21 08:00] VITALS: BP 137/69; PULSE 76; RESP 20; TEMP 97.5; O2SAT 95
[2016-10-21] MEDS: PANTOPRAZOLE SOD 40 MG DELAYED RELEASE TAB PO SCH (09:25)
[2016-10-21] MEDS: METOCLOPRAMIDE HCL 10 MG TAB PO SCH ×2 (09:25→14:37)
[2016-10-21] MEDS: DOCUSATE SODIUM 100 MG CAP PO SCH ×2 (09:25→14:38)
[2016-10-21] MEDS: CHOLECALCIFEROL (VIT D3) 1000 UNIT TAB PO SCH (09:25)
[2016-10-21] MEDS: FERROUS SULFATE 325 MG (65 MG ELEMENTAL IRON) TAB PO SCH ×2 (09:26→21:15)
[2016-10-21] MEDS: amLODIPine BESYLATE 5 MG TAB PO SCH (09:26)
--- NOTE | 2016-10-21 10:50 | HHI.PR ---
Subjective Remarks up and ambulated with patient, had a good BM this am no pain or dizziness Objective Vitals Vital Signs Date Time Temp Pulse Resp B/P Pulse Ox O2 Delivery O2 Flow Rate FiO2 10/21/16 08:05 Room Air 10/21/16 08:00 97.5 76 20 137/69 95 10/20/16 20:25 Room Air 10/20/16 20:00 98.1 93 20 148/94 97 10/20/16 16:00 98.2 89 20 133/72 95 10/20/16 12:00 95.3 78 20 137/71 97 I/O 10/20/16 10/20/16 10/20/16 10/21/16 10/21/16 10/21/16 07:00 15:00 23:00 07:00 15:00 23:00 Intake Total 120 ml 480 ml 240 ml 480 ml 240 ml Output Total 450 ml 1000 ml 700 ml Balance -330 ml 480 ml -760 ml -220 ml 240 ml Intake Oral 120 ml 480 ml 240 ml 480 ml 240 ml IV Total 0 ml 0 ml Output Urine Total 450 ml 1000 ml 700 ml # Bowel Movements 0 0 Result Diagram: 10/20/16 1150 10/20/16 1036 Imaging Last Impressions Upper GI Series 10/17/16 0000 Signed Impressions: Service Date/Time: September 15:29 - CONCLUSION: Moderate to large hiatal hernia. Lc Encinas MD Chest X-Ray 10/16/16 0925 Signed Impressions: Service Date/Time: Sunday, October 16, 2016 09:23 - CONCLUSION: 1. Plain film findings characteristic of a large hiatal hernia. 2. Otherwise, lungs are clear with no acute infiltrate or effusion. Fausto Herbert MD Abdomen/Pelvis CT 10/16/16 0000 Signed Impressions: Service Date/Time: Sunday, October 16, 2016 14:59 - CONCLUSION: 1. Negative CT scan of the abdomen and pelvis for an acute process. 2. Large hiatal hernia. 3. Gallstones. Gomez Dexter MD FACR Objective Remarks GENERAL: awake and alert, oriented x 3 SKIN: Warm and dry. CARDIOVASCULAR: Regular rate and rhythm without murmurs, RESPIRATORY: Breath sounds equal bilaterally. No accessory muscle use. GASTROINTESTINAL: Abdomen soft, non-tender, nondistended. good bowel sounds MUSCULOSKELETAL: No cyanosis, or edema. BACK: Nontender without obvious deformity. No CVA tenderness. neuro exam- grossly unremarkable Procedures 10/17- EGD- esophagial candidasis, erosive gastritis, large hiatal hernia A/P Assessment and Plan 71-year-old female presenting with Symptomatic severe anemia due to erosive gastritis- S/P EGD 10/17 Severe iron deficiency Large hiatal hernia CT of abdomen- unremarkable except for large hiatal hernia po Iron sulfate bid Protonix po 40 mg daily capsule endoscopy as OP General surgery consult for eval of hiatal hernia CBC today Hypothyroidism continue Synthroid 88 g daily History of hypertension amlodipine 2.5 mg daily Palpitations- likely due to anemia, chronic ? anginal equivalent on admission- telemetry with sinus arryhthmias ? inter. a fib- likely due to severe anemia Dr. Martin consulted- was referred to him as OP due to symptoms of palpitations Echo , holter - completed last evening- report pending Microscopic Hematuria-currently on her cycle Discussed with patient plan No chemical prophylaxis due to above up and ambulating Vazquez Lux MD Oct 21, 2016 10:50
[2016-10-21 12:00] VITALS: BP 128/76; PULSE 91; RESP 19; TEMP 98.5; O2SAT 96
[2016-10-21 14:52] LABS: HEMATOCRIT 31.3 % (35.0-46.0); MEAN CORPUSCULAR HEMOGLOBIN 22.4 PG (27.0-34.0); MEAN CORPUSCULAR HGB CONC 30.7 % (32.0-36.0); PLATELET COUNT 412 TH/MM3 (150-450); RED BLOOD COUNT 4.28 MIL/MM3 (4.00-5.30); RED CELL DISTRIBUTION WIDTH 28.2 % (11.6-17.2); REVIEW FLAG FINAL; WHITE BLOOD COUNT 5.5 TH/MM3 (4.0-11.0)
[2016-10-21 16:00] VITALS: BP 126/84; PULSE 84; RESP 17; TEMP 98.3; O2SAT 96
[2016-10-21 20:00] VITALS: BP 120/73; PULSE 80; PULSE 87; RESP 14; TEMP 97.3; O2SAT 96
--- NOTE | 2016-10-21 20:02 | EC ---
Study Study Date:10/21/2016 STUDY CONCLUSIONS SUMMARY LEFT VENTRICLE: The cavity size was normal. Wall thickness was normal. Systolic function was normal. The estimated ejection fraction was 60%. Wall motion was normal; there were no regional wall motion abnormalities. If LV function is below 40, please consider prescribing an ACEI or ARB or document rationale for non-use. PROCEDURE DATA STUDY STATUS: Elective. Procedure: Transthoracic echocardiography. Image quality was good. Scanning was performed from the parasternal, apical, and subcostal acoustic windows. Study completion: The patient tolerated the procedure well. Transthoracic echocardiography. M-mode, complete 2D, complete spectral Doppler, and color Doppler. Height: Height: 62in. Weight: Weight: 175.6lb. Body mass index: BMI: 32.2kg/m^2. Body surface area: BSA: 1.81m^2. Patient status: Inpatient. CARDIAC ANATOMY LEFT VENTRICLE: The cavity size was normal. Wall thickness was normal. Systolic function was normal. The estimated ejection fraction was 60%. Wall motion was normal; there were no regional wall motion abnormalities. AORTIC VALVE: Trileaflet; normal thickness leaflets. Doppler: Transvalvular velocity was within the normal range. There was no stenosis. No regurgitation. Valve area: 3.33cm^2 (Vmax). Indexed valve area: 1.84cm^2/m^2 (Vmax). Peak gradient: 13mm Hg (S). AORTA: Aortic root: The aortic root was normal in size. MITRAL VALVE: Structurally normal valve. Doppler: Transvalvular velocity was within the normal range. There was no evidence for stenosis. No regurgitation. Peak gradient: 4mm Hg (D). LEFT ATRIUM: The atrium was normal in size. RIGHT VENTRICLE: The cavity size was normal. Wall thickness was normal. PULMONIC VALVE: Doppler: Transvalvular velocity was within the normal range. There was no evidence for stenosis. No regurgitation. TRICUSPID VALVE: Structurally normal valve. Doppler: Transvalvular velocity was within the normal range. Trace regurgitation. PULMONARY ARTERY: The main pulmonary artery was normal-sized. Systolic pressure was within the normal range. RIGHT ATRIUM: The atrium was normal in size. PERICARDIUM: There was no pericardial effusion. SYSTEMIC VEINS: Inferior vena cava: The vessel was normal in size. Patient weight: 175.6lb _Ejection fraction:_ 65-75% _Fractional shortening:_ 32% up to 5Kg 5-11.5Kg 11.6-22.9Kg 23-45Kg 45-57Kg Aortic Root 7-13 <17 13-22 17-27 17-27 LA diam 6-13 <23 24-38 33-47 37-40 RVID 10-17 7-15 7-15 7-18 8-17 LVIDd 12-22 <32 24-38 33-47 37-40 LVPW 2-4 3-6 5-7 6-8 7-8 IVS 2-4 3-6 5-7 6-8 7-8 BASIC MEASUREMENTS ADULT NORMAL Left ventricle LV internal dimension, ED, chordal *34.8 mm 43-52 level, PLAX LV internal dimension, ES, chordal 26.8 mm 23-38 level, PLAX Fractional shortening, chordal level, *23 % >29 PLAX LV posterior wall thickness, ED 8.3 mm IVS/LVPW ratio, ED 0.98 <1.3 Ventricular septum Septal thickness, ED 8.14 mm Aortic valve Leaflet separation 18 mm 15-26 BASIC MEASUREMENTS ADULT NORMAL Aortic valve Leaflet separation 18 mm 15-26 Aorta Root diameter, ED 32 mm 20-37 Left atrium Anterior-posterior dimension, ES 34 mm 19-40 Anterior-posterior dimension index, ES 1.88 cm/m^2 <2.2 LA/aortic root ratio 1.06 DOPPLER MEASUREMENTS ADULT NORMAL Main pulmonary artery Pressure, S 18 mm Hg =30 Aortic valve Peak velocity, S 178 cm/s Peak gradient, S 13 mm Hg Valve area, Vmax 3.33 cm^2 Valve area index, Vmax 1.84 cm^2/m^2 Mitral valve Peak E-wave velocity 99.7 cm/s Peak A-wave velocity 70.6 cm/s Deceleration time *148 ms 150-230 Peak gradient, D 4 mm Hg Peak E/A ratio 1.4 Tricuspid valve Regurgitant peak velocity 181 cm/s Peak RV-RA gradient, S 13 mm Hg Maximal regurgitant velocity 181 cm/s Systemic veins Estimated CVP 10 mm Hg Right ventricle RV pressure, S 23 mm Hg <30 Pulmonic valve Peak velocity, S 117 cm/s LEGEND: Mean values are shown as u=mean value. Asterisk (*) wayne values outside specified normal range. Amended Quadrat, Princess [id number]
--- NOTE | 2016-10-21 21:30 | MB ---
cc: NOEMY ANDERSON M.D. DATE OF CONSULTATION 10/21/2016 REASON FOR CONSULTATION Hiatal hernia, severe anemia. BRIEF HISTORY This is a very pleasant 71-year-old woman with a history of mild hypertension, hypothyroidism who presented to her primary care physician with several week history of nausea, feeling short of breath, easily fatigued, weak. She has had dry heaves. She has not been able to eat much more than crackers and drink some liquids. She went to her primary care doctor who ordered labs and her hemoglobin was 5.6. She presented to the emergency department where she was admitted for evaluation. She has undergone CT scan of the abdomen and pelvis which shows about half to two thirds of her stomach in her chest. She had upper GI with similar findings. She had a transfusion of 2 units of blood and her hemoglobin is now about 9.6. She had upper endoscopy which showed some mild gastric erosions, some findings suggestive of esophageal candidiasis. She had prior colonoscopy about [address] Ruffin which was negative for bleeding source by report. She has not had capsule endoscopy. ALLERGIES SHE HAS ALLERGIES TO TETRACYCLINE AND SULFA WELL KENALOG AND MARCAINE WHICH SHE HAD INJECTED INTO HER KNEE. SULFA AND TETRACYCLINE RESULTED IN A SEVERE VAGINAL INFECTION. PAST MEDICAL HISTORY Previous medical problems: 1. She has had hypothyroidism. 2. Mild hypertension. 3. According to the computer obstructive sleep apnea on CPAP. 4. She had a vaginal hysterectomy in 1976. 5. She has left knee meniscal surgery four years ago. 6. She had surgery for a prolapsed bladder which was a tacking procedure which really did not help. 7. She had cataract surgery on the right eye. MEDICATIONS Routine medications include: 1. Synthroid 88 micrograms daily. 2. Amlodipine 2.5 milligrams daily. 3. She takes occasional omeprazole. 4. Fish oil. 5. Vitamin D3. 6. She has been on prednisone recently for an exacerbation of bronchitis and is on tapering doses of that. FAMILY HISTORY Significant for her mother actually operated on her for emergency bowel surgery and then for hiatal hernia. Her father had all but a foot of his colon removed for colonic polyposis and he about 16 years ago. REVIEW OF SYSTEMS She previous to this denies unusual bleeding tendency though she remembers the reason for hysterectomy was heavy menstrual periods and she was treated on iron many years ago when she was a young woman. She had surgery recently for a right eye cataract. Her vision is improved. She denies hearing problems. She has sinus allergies and some bronchitis related to environmental allergies. She denies primary lung disorder. No COPD. She has no history of heart disease, heart attack, chest pains. She does feel an abnormal heartbeat when she lays down. It is pretty intense at times. She had acid reflux many months ago, none recently. She denies chronic constipation or diarrhea. She denies blood in urine or stool. She has no liver or kidney disease. She has never had a stroke or seizure. Never been told she has diabetes. She is hypothyroid. She does have arthritic changes in her back. PHYSICAL EXAMINATION GENERAL: She is a well-developed, well-nourished woman who is in no acute distress. She is very pleasant and cooperative with the examination. VITAL SIGNS: Temperature is 98.5, her pulse is 91, respiratory rate 19, blood pressure 120/76. O2 saturation is 96%. HEENT: She is normocephalic, atraumatic. Pupils are 4, round and reactive to light. Her sclerae are anicteric. Oropharynx is clear without mucosal lesions. She has good dentition. NECK: Her neck is supple without adenopathy. She has no thyromegaly and no carotid bruits. Her trachea is midline. LUNGS: Her lungs are clear and equal anteriorly bilaterally. CARDIOVASCULAR: Her heart sounds are regular without murmur, rub or gallop. BREASTS: Examination deferred. PELVIC: Examination deferred. RECTAL: Examination is deferred. ABDOMEN: Her abdomen is soft and nondistended. She has no scars. No hernias. Normal bowel sounds and no tenderness to palpation. EXTREMITIES: Her extremities show no cyanosis, clubbing or edema. She has equal radial and dorsalis pedis pulses. NEUROLOGICAL: She is awake, alert, oriented with equal bilateral managing editor strength and no gross motor or sensory deficit. LABORATORY DATA Her labs showed an initial hemoglobin of 5.8. She is now 9.6. Her white count is 5.5 with a normal differential. Her platelet count is 412. IMAGING She had an abdomen and pelvis CT which shows a large hiatal hernia and gallstones. She had a chest x-ray which shows large hiatal hernia. Lungs are clear with no acute infiltrate. Upper GI series shows a moderate to large hiatal hernia. ASSESSMENT This is a 71-year-old woman with hiatal hernia and some minor gastric erosions that may have contributed to her anemia. She had a colonoscopy six months ago which did not show any etiology for her anemia. She has not had a capsule endoscopy. I spoke to the patient as well as Dr. Stern regarding scheduling capsule anoscopy before pursuing surgical intervention. The patient understands. The patient additionally has incidental gallstones and has reported some nausea. If surgical intervention is indicated for hiatal hernia it would be reasonable to consider concomitant laparoscopic cholecystectomy. I will see the patient as an outpatient to discuss these plans further. She is comfortable with this plan of care and is anxious to be discharged. MD HILARY Ruggiero/KK /3:20 PM /8:38 PM
--- NOTE | 2016-10-21 23:42 | HM ---
Date Performed: 10/18/2016 Time Performed: 13:52:00 HOOKUP DATE: 10/18/16 01:52:00 PM Fri ANALYSIS START TIME: 10/18/2016 1:57:00 PM ANALYSIS END TIME: 10/19/2016 1:22:00 PM PATIENT AGE: 71 PATIENT HEIGHT: 62 PATIENT WEIGHT: 176 DRUG LIST PATIENT DIAGNOSIS: TACHYCARDIA TEST NARRATIVE: The patient's average heart rate was 77 BPM. Heart rates greater than 120 B PM were noted < 1% of the time. No episodes of bradycardia were noted. No pauses exceeding 2.0 s econds were noted. 148 ventricular ectopics, which represented < 1% of the total beat count, were noted. The highest ventricular ectopic frequency occurred from 09:00 AM to 10:00 AM Sat. During th is time 20 VE(s) occurred. Ventricular ectopics were observed as 148 isolated beat(s) only. No coup lets or runs were noted. Some of the ventricular beats occurred in bigeminal cycles. 97 supraven tricular ectopics, which represented < 1% of the total beat count, were noted. The highest supravent ricular ectopic frequency occurred from 03:00 AM to 04:00 AM Sat. During this time 20 SVE(s) occurre d. No episodes of ST depression (defined as -1.0 mm or more) were noted in channel 1. No episode s of ST depression (defined as -1.0 mm or more) were noted in channel 2. Multiple episodes of ST dep ression (defined as -1.0 mm or more) were noted in channel 3. The maximum depression of -2.5 mm occ urred at 09:47:40 AM Sat. TEST INTERPRETATION: 1) Predominate normal Sinus rhythm 2) Rare PVC/PAC 3) No episodes of ST depression (defined as -1.0 mm or more) were noted in channel 1 . No episodes of ST depression (defined as -1.0 mm or more) were noted in channel 2. Multiple episo rosina of ST depression (defined as -1.0 mm or more) were noted in channel 3. The maximum depression o f -2.5 mm occurred at 09:47:40 AM Sat. 4) Diary returned with an episode of heart beating hard correl ates with PAC Signed by : Bryn Pinzon
[2016-10-22] VITALS: BP 125/73; PULSE 71; RESP 16; TEMP 97.6; O2SAT 95
[2016-10-22] MEDS: LEVOTHYROXINE SODIUM 88 MCG TAB PO SCH (05:36)
[2016-10-22 08:00] VITALS: BP 124/83; PULSE 87; RESP 20; TEMP 98; O2SAT 95
[2016-10-22] MEDS: FERROUS SULFATE 325 MG (65 MG ELEMENTAL IRON) TAB PO SCH (08:01)
[2016-10-22] MEDS: amLODIPine BESYLATE 5 MG TAB PO SCH (08:01)
[2016-10-22] MEDS: PANTOPRAZOLE SOD 40 MG DELAYED RELEASE TAB PO SCH (08:01)
[2016-10-22] MEDS: CHOLECALCIFEROL (VIT D3) 1000 UNIT TAB PO SCH (08:01)
[2016-10-22] MEDS: DOCUSATE SODIUM 100 MG CAP PO SCH ×3 (08:01→12:21)
[2016-10-22] MEDS: METOCLOPRAMIDE HCL 10 MG TAB PO SCH ×2 (08:33→12:21)
--- NOTE | 2016-10-22 10:11 | HHI.PR ---
Subjective Remarks Incision says she feels fine. Denies any chest pain or shortness of breath. Denies any nausea or vomiting. Positive bowel movement. Denies any blood. Patient does report that she had some chest palpitations previously, however has not had these in several days. These palpitations only occurred after eating. Objective Vital Signs Date Time Temp Pulse Resp B/P Pulse Ox O2 Delivery O2 Flow Rate FiO2 10/22/16 08:00 98.0 87 20 124/83 95 10/22/16 00:00 97.6 71 16 125/73 95 10/21/16 20:00 97.3 87 14 120/73 96 10/21/16 20:00 80 10/21/16 16:00 98.3 84 17 126/84 96 10/21/16 12:00 98.5 91 19 128/76 96 I/O 10/21/16 10/21/16 10/21/16 10/22/16 10/22/16 10/22/16 07:00 15:00 23:00 07:00 15:00 23:00 Intake Total 480 ml 1000 ml 360 ml 240 ml 100 ml Output Total 700 ml 600 ml 500 ml 500 ml Balance -220 ml 400 ml -140 ml -260 ml 100 ml Intake Oral 480 ml 1000 ml 360 ml 240 ml 100 ml IV Total 0 ml Output Urine Total 700 ml 600 ml 500 ml 500 ml # Bowel Movements 0 1 0 0 Result Diagram: 10/21/16 1415 10/20/16 1036 Objective Remarks GENERAL: Vision sitting up in bed. Appears comfortable.. Smiling. Alert and oriented 4. SKIN: Warm and dry. HEAD: Normocephalic. EYES: No scleral icterus. No injection or drainage. NECK: Supple, trachea midline. No JVD. CARDIOVASCULAR: Regular rate and rhythm without murmurs, gallops, or rubs. RESPIRATORY: Breath sounds equal bilaterally. No accessory muscle use. GASTROINTESTINAL: Abdomen soft, non-tender, nondistended. No rebound or guarding. MUSCULOSKELETAL: No cyanosis, or edema. BACK: Nontender without obvious deformity. No CVA tenderness. A/P Assessment and Plan Severe microcytic, iron deficiency anemia. Status post EGD 10/17. Biopsy still pending. -Hemoglobin overall stable after replacement. We'll give one infusion of IV iron prior to discharge. Follow-up with gastroenterology as outpatient go over biopsy results. Discussed with patient. Patient conveys understanding. -Continue PPI -Patient will need Endoscopy As Outpatient. Thyroid isn't. Chronic. Continue home Synthroid. Hypertension. Blood pressure acceptable. Continue home blood pressure medications Palpitations. Acute on admission. Patient says that these have resolved. Recently occurred after eating. Possible sinus arrhythmia on admission. Patient will be referred to cardiology as outpatient. -Patient denies any exertional chest pain. Follow-up with cardiology as outpatient. There is no hematuria, and no urinalysis on admission. Patient denies any vaginal bleeding. Denies any dysuria. Patient had a hysterectomy 20 years ago. Hiatal hernia. Porcelain gallbladder. Follow up with an oral surgery as outpatient. Patient will need pill endoscopy prior to evaluation. Suzanne esophagitis. Start treatment with fluconazole. Gastritis. Continue PPI. Will order B12 due to the possibility of both iron deficiency and pernicious anemia secondary to gastritis. DVT prophylaxis. Avoid anticoagulation in the setting of anemia. SCDs. On biopsy. Discharge Planning Discharge home. Follow-up with cardiology, gastroenterology, general surgery Rai Carter MD Oct 22, 2016 10:10
[2016-10-22] MEDS ORDERED: FERR325T PO (10:13)
[2016-10-22] MEDS ORDERED: METO10TA PO (10:13)
[2016-10-22] MEDS ORDERED: FLUC150T PO (10:13)
[2016-10-22] MEDS ORDERED: PANT40TA3 PO (10:13)
[2016-10-22] MEDS ORDERED: METO25TA3 PO (10:21)
--- NOTE | 2016-10-22 10:26 | HHI.DS ---
Discharge Summary Admission Date Oct 16, 2016 at 17:03 Discharge Date: Oct 22, 2016 Admitting Diagnosis severe anemia. GI bleed. (1) GI bleed ICD Code: K92.2 (2) Severe anemia ICD Code: D64.9 (3) Tachycardia ICD Code: R00.0 Procedures 10/17- EGD- esophagial candidasis, erosive gastritis, large hiatal hernia Brief History - From Admission Patient is a very pleasant 71-year-old female with history of hypertension, hypothyroidism who was sent in the here from her primary care physician because of low hemoglobin. Patient apparently for the past 2 weeks now has been complaining of generalized weakness, easy fatigability associated with nausea and occasional few episodes of vomiting mostly dry heaves denies any melena or hematochezia. Patient also experiencing palpitations. Went to her primary care physician who did CBC. At the ER her hemoglobin here was 5.6. Patient also with history of obstructive sleep apnea on C Pap. She was last seen by the analysis evaluator because of cough and was placed on prednisone taper and omeprazole early this month was actually placed on prednisone taper since the she's down to 10 mg daily now. Otherwise patient denies any bleeding tendencies. ER MD performed a rectal exam which shows brown stools with positive occult blood. admitted for further evaluation and management. Patient admits to having more stress lately. She denies any other bleeding tendencies. CBC/BMP: 10/21/16 1415 10/20/16 1036 Significant Findings Laboratory Tests Test 10/19/16 10/20/16 10/20/16 10/21/16 10:30 10:36 11:50 14:15 Hemoglobin 9.5 GM/DL 9.7 GM/DL 9.6 GM/DL (11.6-15.3) (11.6-15.3) (11.6-15.3) Hematocrit 30.6 % 31.3 % 31.3 % (35.0-46.0) (35.0-46.0) (35.0-46.0) Mean Corpuscular Volume 70.8 FL 73.0 FL (80.0-100.0) (80.0-100.0) Mean Corpuscular Hemoglobin 22.0 PG 22.4 PG (27.0-34.0) (27.0-34.0) Mean Corpuscular Hemoglobin 31.1 % 30.7 % Concent (32.0-36.0) (32.0-36.0) Red Cell Distribution Width 26.8 % 28.2 % (11.6-17.2) (11.6-17.2) Platelet Count 546 TH/MM3 (150-450) Monocytes % 14 % (0-8) Platelet Estimate HIGH (NORMAL) Platelet Morphology Comment ENLARGED (NORMAL) Polychromasia 2.6 % (0.0-1.9) Potassium Level 5.2 MEQ/L (3.5-5.1) Estimat Glomerular Filtration 67 ML/MIN (>89) 67 ML/MIN (>89) Rate Chloride Level 108 MEQ/L (98-107) Random Glucose 117 MG/DL (74-106) Imaging Last Impressions Upper GI Series 10/17/16 0000 Signed Impressions: Service Date/Time: September 15:29 - CONCLUSION: Moderate to large hiatal hernia. Lc Encinas MD Chest X-Ray 10/16/16 0925 Signed Impressions: Service Date/Time: Sunday, October 16, 2016 09:23 - CONCLUSION: 1. Plain film findings characteristic of a large hiatal hernia. 2. Otherwise, lungs are clear with no acute infiltrate or effusion. Fausto Herbert MD Abdomen/Pelvis CT 10/16/16 0000 Signed Impressions: Service Date/Time: Sunday, October 16, 2016 14:59 - CONCLUSION: 1. Negative CT scan of the abdomen and pelvis for an acute process. 2. Large hiatal hernia. 3. Gallstones. Gomez Dexter MD FACR PE at Discharge GENERAL: awake and alert, oriented x 3 SKIN: Warm and dry. CARDIOVASCULAR: Regular rate and rhythm without murmurs, RESPIRATORY: Breath sounds equal bilaterally. No accessory muscle use. GASTROINTESTINAL: Abdomen soft, non-tender, nondistended. good bowel sounds MUSCULOSKELETAL: No cyanosis, or edema. BACK: Nontender without obvious deformity. No CVA tenderness. neuro exam- grossly unremarkable Hospital Course Anemia, with hemoglobin 5.8 on admission, increased to 9.5 after 2 units of RBCs , and remained labile throughout admission. Patient's fatigue, as well as postprandial palpitations resolved. Patient had recently had colonoscopy as outpatient. She underwent EGD which showed hiatal hernia, esophagitis, gastritis, however no acute bleeding. Patient did have palpitations on admission, which resolved after blood transfusion. Adam 1 negative. She did have what appears to be episodes of sinus tachycardia/SVT with rate up to 140s intermittently. Blood pressure stable. Denies any lightheadedness. She' ll be started on metoprolol 25 mg twice daily. Cardiology consulted,. Severe microcytic, iron deficiency anemia. Status post EGD 10/17. Biopsy still pending. -Hemoglobin overall stable after replacement. We'll give one infusion of IV iron prior to discharge. Follow-up with gastroenterology as outpatient go over biopsy results. Discussed with patient. Patient conveys understanding. -Continue PPI -Patient will need Endoscopy As Outpatient. Thyroid isn't. Chronic. Continue home Synthroid. Hypertension. Blood pressure acceptable. Continue home blood pressure medications Palpitations. Acute on admission. Patient says that these have resolved. Recently occurred after eating. Possible sinus arrhythmia on admission. Patient will be referred to cardiology as outpatient. -Patient denies any exertional chest pain. Follow-up with cardiology as outpatient. There is no hematuria, and no urinalysis on admission. Patient denies any vaginal bleeding. Denies any dysuria. Patient had a hysterectomy 20 years ago. Hiatal hernia. Porcelain gallbladder. Follow up with an oral surgery as outpatient. Patient will need pill endoscopy prior to evaluation. Suzanne esophagitis. Start treatment with fluconazole. Gastritis. Continue PPI. Will order B12 due to the possibility of both iron deficiency and pernicious anemia secondary to gastritis. DVT prophylaxis. Avoid anticoagulation in the setting of anemia. SCDs. On biopsy. Pt Condition on Discharge: Good Discharge Disposition: Discharge Home Discharge Time: > 30 minutes Discharge Instructions DIET: Follow Instructions for: Heart Healthy Diet Activities you can perform: Regular-No Restrictions Follow up Referrals: Cardiology - 1 Week with Christiano Martin MD Gastroenterology - 1 Week with Esme Barrientos MD PCP Follow-up - 1 Week Surgical - 2 Weeks with Christiano Maria MD New Orders: CBC WITH DIFF - 3-5 Days New Medications: Fluconazole (Fluconazole) 150 Mg Tab 150 MG PO DAILY Infection #13 Ref 0 TAB Metoprolol Tartrate (Metoprolol Tartrate) 25 Mg Tab 25 MG PO BID palpitations #60 Ref 0 TAB Ferrous Sulfate (Ferrous Sulfate) 325 Mg Tab 325 MG PO BID iron deficiency Days 30 TAB Metoclopramide (Metoclopramide) 10 Mg Tab 5 MG PO TIDAC Stomach Days 30 TAB Pantoprazole (Pantoprazole) 40 Mg Tab 40 MG PO DAILY gastritis Days 30 TAB Continued Medications: Amlodipine (Amlodipine) 2.5 Mg Tab 2.5 MG PO DAILY Blood Pressure Management #0 Ref 0 TAB Biotin (Biotin) 7,500 Mcg Tab 7500 MCG PO DAILY #0 BOTTLE Cholecalciferol (Vitamin D-3) 2,000 Unit Tab 2500 UNITS PO DAILY Levothyroxine (Synthroid) 88 Mcg Tab 88 MCG PO DAILY Thyroid #0 Ref 0 TAB Sennosides (Perdiem Overnight Relief) 15 Mg Tab 30 MG PO HS Discontinued Medications: Nutritional Supplements ([place] Oil) 1 Cap Cap 1000 MG PO DAILY Rai Carter MD Oct 22, 2016 10:26
[2016-10-22 11:52] VITALS: BP 146/80; PULSE 77; RESP 20; TEMP 98.4; O2SAT 96
[2016-10-22] MEDS ORDERED: FLUCONAZOLE 100 MG TAB PO SCH (12:00)
[2016-10-22] MEDS ORDERED: METOPROLOL TARTRATE 25 MG TAB PO ONE (12:00)
[2016-10-22] MEDS ORDERED: SODIUM FERRIC GLUCONATE INJ 125 MG in SODIUM CHLORIDE 0.9% INJ 100 ML IV ONE (13:00)
--- NOTE | 2016-10-22 13:29 | MB ---
cc: NOEMY ANDERSEN M.D. DATE OF CONSULTATION 10/22/2016 DATE OF [address] Rai Carter FAMILY PHYSICIAN Dr. Han CONSULTING PHYSICIAN Dr. Andersen CHIEF COMPLAINT Palpitations IMPRESSION 1. Palpitations, PAC's, PVCs. 2. GI bleed 3. Large hiatal hernia 4. History of hypertension. RECOMMENDATIONS Echocardiogram was normal. She is cleared for surgery. I will see her as an outpatient. SUBJECTIVE Ms. Ireland is a 71-year-old female with hypertension whose and father I take care who was admitted with a hemoglobin in the 5's several days ago. She has since been evaluated apparently today or yesterday. She told her physician she was having palpitations and echocardiogram was normal. Denies chest tightness, heaviness, ulcers or pressure. She does have PVCs and PVCs. PAST MEDICAL HISTORY Remarkable for: 1. Hypothyroidism 2. Hypertension 3. Obstructive sleep apnea 4. She has had a hysterectomy. 5. Left knee surgery 6. Bladder prolapse repair 7. Right eye surgery MEDICATIONS 1. Synthroid 2. Amlodipine 3. Fish oil 4. Vitamin D3 5. Omeprazole ALLERGIES KENALOG, MARCAINE, SULFA, TETRACYCLINE. REVIEW OF SYSTEMS GI: Anemia as above. RESPIRATORY: No recent bronchitis, pleurisy or pneumonia. NEUROLOGIC: No history of stroke, epilepsy, or TIA. All other ten-point review of systems is negative. PHYSICAL EXAMINATION Blood pressure 174/70, heart rate 83. HEAD, EYES, EARS, NOSE, AND THROAT: Pupils equal. Sclerae clear. NECK: The neck veins are not distended. LUNGS: The lungs are clear. CARDIAC: Exam shows no murmurs or gallops. ABDOMEN: Soft. EXTREMITIES: Without edema. NEUROLOGIC: Right handed, fluent speech, moves all extremities. Gait is intact. LABORATORY DATA AND ELECTROCARDIOGRAM Reviewed DISCUSSION None MD QUIN Caputo/KOJO /12:59 PM /1:20 PM
[2016-10-22] MEDS ORDERED: METOPROLOL TARTRATE 25 MG TAB PO SCH (21:00)
== END 2016-10-22 16:06 | disposition home or self-care (01) | DRG 378 ==
LOC: NEPA 09:03 → NEDA 10:59 → OBSVTOIN 17:03 → NEDH 21:59 → HCIS 10-17 02:37 → N07A 10-17 22:08
PROVIDERS: ADMIT Internal Medicine; ATTEND Internal Medicine
PROC: 30233N1 Transfusion of Nonautologous Red Blood Cells into Peripheral Vein, Percutaneous Approach (ICD-10-PCS; principal; 2016-10-16)
PROC: 0DB28ZX Excision of Middle Esophagus, Via Natural or Artificial Opening Endoscopic, Diagnostic (ICD-10-PCS; 2016-10-17)
PROC: 0DB68ZX Excision of Stomach, Via Natural or Artificial Opening Endoscopic, Diagnostic (ICD-10-PCS; 2016-10-17)
PROC: 0DB98ZX Excision of Duodenum, Via Natural or Artificial Opening Endoscopic, Diagnostic (ICD-10-PCS; 2016-10-17)
DX: K92.2 Gastrointestinal hemorrhage, unspecified (principal); B37.81 Candidal esophagitis; I48.91 Unspecified atrial fibrillation; D50.9 Iron deficiency anemia, unspecified; K44.9 Diaphragmatic hernia without obstruction or gangrene; K80.20 Calculus of gallbladder without cholecystitis without obstruction; I49.3 Ventricular premature depolarization; K29.60 Other gastritis without bleeding; K59.00 Constipation, unspecified; I10 Essential (primary) hypertension; I20.8 Other forms of angina pectoris; G47.33 Obstructive sleep apnea (adult) (pediatric); E03.9 Hypothyroidism, unspecified; R31.29 Other microscopic hematuria; K82.8 Other specified diseases of gallbladder; Z83.71 Family history of colonic polyps; Z88.1 Allergy status to other antibiotic agents; Z86.010 Personal history of colon polyps; Z88.2 Allergy status to sulfonamides; Z88.4 Allergy status to anesthetic agent
CPT/HCPCS: 36430; 71010; 74176; 74240; 80048; 80053; 82607; 82728; 82746; 83540; 83550; 84443; 84484; 85007; 85014; 85018; 85025; 85027; 85610; 85730; 86850; 86900; 86901; 86920; 88305; 88312; 93005; 93225; 93226; 93306; C9113; J1756; J2916; J7050; J7121; P9016

== ENCOUNTER → 2017-01-08 | Day surgery (SDC) | payer MEDICARE ==
[~2017-01-08] MED LIST: ACETAMINOPHEN/HYDROcodone 325 MG/5 MG TAB ONE; AMLO2.5T PO; BIOT7500 PO; BUPIVACAINE/EPINEPHRINE 0.25% 50 ML VIAL ONE; CHOL1TAB42 PO; FERR325T PO; FLUC150T PO; KETOROLAC TROMETHAMINE 30 MG/ML (IVP) VIAL IV PUSH ONE; LACTATED RINGER'S 1000 ML INJ 1,000 ML ONE; LIDOCAINE 1%/EPINEPHrine 1:100,000 SOLN 50 ML VIAL ONE; METO10TA PO; METO25TA3 PO; MIDAZOLAM HCL 2 MG/2 ML VIAL ONE; ONDANSETRON HCL 4 MG/2 ML VIAL IV PUSH ONE; PANT40TA3 PO; PROPOFOL 200 MG/20 ML AMP IV ONE; SYNT88TA PO; [UNRECOGNIZED DRUG - CODE] PO; ceFAZolin 2 GM PREMIX 50 ML ONE
--- NOTE | 2017-01-08 16:08 | TN ---
cc: NOEMY ANDERSON M.D. DATE OF SURGERY: 01/08/2017 PREOPERATIVE DIAGNOSIS Symptomatic left inguinal hernia. POSTOPERATIVE DIAGNOSIS Symptomatic left inguinal hernia. PROCEDURE: Open repair, left inguinal hernia with mesh. SURGEON Dr. Noemy Anderson ANESTHESIA: General. INDICATIONS A very pleasant 71-year-old woman who was recently seen in the hospital due to anemia, thought to be related to hiatal hernia. She was incidentally discovered to have gallstones. She was found to have a tender reducible left inguinal hernia. She is undergoing further GI workup and the patient desired repair of her symptomatic left inguinal hernia. INTRAOPERATIVE FINDINGS Consistent with an indirect inguinal hernia. ESTIMATED BLOOD LOSS: Less than 30 mL DESCRIPTION OF PROCEDURE IN DETAIL The patient identified as Wanda Ireland, taken to the operating room, placed in supine position. Sequential compression devices were placed on bilateral lower extremities. Following induction of adequate general anesthesia with a laryngeal mass left groin was prepped and draped in the usual sterile fashion with Betadine. A time-out procedure was performed. Following completion of time-out procedure to everyone's satisfaction within the room proposed left groin incision was made with a marking pen. It was infiltrated with local anesthetic and incision carried out with a scalpel. Hemostasis was controlled with electrocautery. Dissection continued posteriorly through Geraldine's fascia down to the level of the external oblique fascia. There was a very generous layer of subcutaneous fatty tissue. More local anesthetic was placed beneath the external oblique fascial fibers. They were opened in their direction, underlying ilioinguinal and iliohypogastric nerve branches were identified and avoided. The round ligament and surrounding contents were from surrounding tissues to the level of the pubic tubercle. Fair amount of fatty tissue and a small hernia sac was from surrounding tissues. In doing so some venous bleeding occurred and there was vein along the round ligament which was crossclamped proximally and distally, round ligament divided and suture ligated at either end with 2-0 Vicryl suture ligature. The hernia sac and round ligament lipoma was reduced through the internal inguinal ring and the tissue overlying it imbricated to allow for complete reduction of the herniated tissue. A piece of atrium Prolite mesh was cut from a 3 x 6 inch piece and customized, incised and sutured in position with zero Ethilon sutures above and below the pubic tubercle into Natanael's ligament and the shelving edge of the inguinal ligament inferiorly and laterally, and into the internal oblique fascia superiorly and medially taking special care to avoid the iliohypogastric nerve. The mesh laterally was tucked beneath the external oblique fascial fibers which held it in position. The wound was irrigated with saline. There was no evidence of bleeding. The remaining local anesthetic was placed within the operative field. The external oblique fascial fibers were closed in their direction, using a running 3-0 Vicryl suture, taking care to avoid the underlying nerve branches. The single 2-0 Vicryl was placed in Geraldine's fascia and the skin was approximated with running 4-0 Monocryl subcuticular suture. Dressings were applied with Mastisol and half inch brown Steri-Strips, gauze and Tegaderm. The patient tolerated the procedure without apparent complication. Sponge, needle and instrument counts were correct at the end of the case. MD HILARY Ruggiero/CHANCE /3:12 PM /3:22 PM
== END | disposition home or self-care (01) ==
LOC: ESDC 12:50
PROVIDERS: ATTEND Surgery Trauma Surgery
DX: K40.90 Unilateral inguinal hernia, without obstruction or gangrene, not specified as recurrent (principal)
CPT/HCPCS: 00830; 49505; C1781; J0690; J1885; J2250; J2405; J3010; J7120